=== PATIENT | female | born 1980 | race Caucasian/White ===

== ENCOUNTER 2017-05-18 12:36 | Emergency (ER) | payer MEDICAID ==
[2013-06-01 10:02] VITALS: BMI 36.3
[~2017-05-18 12:36] MED LIST: CELEXA40 MG PO; ESTRACE2 MG PO; KLONOPIN1 MG PO; MOBIC7.5 MG PO; NORCO 10/325 TA1 TA1 PO; NORCO 5/325 TAB1 TA1 PO; PROVENTIL HFA6.7 GM; SOMA350 MG PO
== END 2017-05-18 16:22 | disposition home or self-care (01) ==
LOC: D.ER 12:36
DX: M10.072 Idiopathic gout, left ankle and foot (principal); M77.9 Enthesopathy, unspecified; F17.200 Nicotine dependence, unspecified, uncomplicated

== ENCOUNTER 2017-10-23 08:00 | Emergency (ER) | payer MEDICAID ==
[2013-06-01 10:02] VITALS: BMI 36.3
[2017-12-04] MEDS ORDERED: NORCO 7.5/325 T1 TA1 PO (08:55)
[2017-12-04] MEDS ORDERED: XANAX1 MG PO (08:55)
[2017-12-04] MEDS ORDERED: LEVOTHYROXINE75 MCG PO (08:55)
== END 2017-10-23 10:01 | disposition home or self-care (01) ==
LOC: D.ER 08:00
DX: S80.02XA Contusion of left knee, initial encounter (principal); X58.XXXA Exposure to other specified factors, initial encounter; Y93.9 Activity, unspecified; Y92.89 Other specified places as the place of occurrence of the external cause

== ENCOUNTER → 2017-11-15 14:23 | Outpatient (CLI) | payer MEDICAID ==
[2013-06-01 10:02] VITALS: BMI 36.3
[~2017-11-15 14:23] MED LIST changes: +LEVOTHYROXINE75 MCG PO; +NORCO 7.5/325 T1 TA1 PO; +XANAX1 MG PO
[2017-12-05 08:38] VITALS: BMI 27.1
== END | disposition home or self-care (01) ==
LOC: D.MRI 14:23
DX: M25.562 Pain in left knee (principal)

== ENCOUNTER 2017-12-05 05:22 | Day surgery (SDC) | payer MEDICAID ==
[2017-12-04 09:40] LABS: HEMATOCRIT 40.9 % (36.0-48.0); HEMOGLOBIN 13.8 g/dL (12-16); MCH 31.9 pg (26.0-34.0); MCHC 33.7 g/dL (31.0-37.0); MCV 94.7 fL (80.0-100.0); MEAN PLATELET VOLUME 10.4 fL (7.4-10.4); RBC 4.32 10x6/uL (4.00-5.40); RDW 13.2 % (11.5-14.5); WBC 7.1 10x3/uL (4.8-10.8)
[~2017-12-05] VITALS: Ht 157.5 cm; Wt 67.1 kg
--- NOTE | ~2017-12-05 | OP ---
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 PROCEDURE: Arthroscopic-aided anterior cruciate ligament reconstruction with allograft. SURGEON: Wili Covarrubias MD ANESTHESIA: General. INTRAOPERATIVE COMPLICATIONS: None. SUMMARY OF PATHOLOGIC FINDINGS: The patient had a complete torn ACL of the femoral side, which had wrapped around the PCL rendering some stability. Medial and lateral menisci were in good overall condition. OPERATIVE SUMMARY IN DETAIL: After obtaining the appropriate preoperative orthopedic surgery consent as well as anesthetic consultation, evaluation and clearance, the patient was brought to the operating room and placed on the operating table in supine position. After general laryngeal mask airway was administered, tourniquet was placed about the proximal aspect of left lower extremity. Left lower extremity was then prepped and draped in routine sterile fashion. Leg was exsanguinated, tourniquet was inflated to 350 mmHg. Routine inferolateral portal was established followed by superomedial portal and inferomedial portal. Diagnostic arthroscopy did reveal the above findings. Residual stump was then removed. The tibial tunnel was made using the Arthrex tibial tunnel guide for a size 11. At this point, the spade tipped pin was then placed in an anatomic position in the femur after a notchplasty had been performed. This was then placed through the lateral cortex and out the skin on the lateral thigh. A low profile 11-mm reamer was then used to create the femoral tunnel approximately 35 mm deep. At this point, the graft having already been prepared on the back field for a size 10 was then deployed into the femoral tunnel and the TightRope was deployed in the usual fashion fitting the ACL snugly into the femoral socket as well as the tibial socket. After terminal tensioning, the knee was taken through a range of motion, held taut and at this point, the distal fixation was provided by a bicortical tibial post. This was tied tightly. The knee was taken through range of motion and the patient's preoperative pivot shift was no longer present. Having completed this, the wounds were closed in the usual fashion. The sterile dressings were applied. Tourniquet was deflated. The patient was awakened, taken to recovery room in stable condition. All final needle and sponge counts were correct. TRANSINT:[id number] Voice Confirmation ID: [id number] DOCUMENT ID: [id number] OPERATIVE REPORT [id number] MEÑO DUNN MD, WILI DOMINGUEZ at 1133 CC: [id number] DICTATION DATE: 12/05/172030 LITERACY TUTOR: 12/06/[address] [facility] 12/05/17 [place] [id number] [place] [address]
[2017-12-05 08:38] VITALS: BP 112/74; Ht 157.5 cm; Wt 67.1 kg
== END 2017-12-05 15:15 | disposition home or self-care (01) ==
LOC: D.OPS 05:22 → D.PAN 11:15 → D.OPS 11:25
PROVIDERS: Anesthesiology
DX: S83.512A Sprain of anterior cruciate ligament of left knee, initial encounter (principal); Z01.812 Encounter for preprocedural laboratory examination

== ENCOUNTER → 2017-12-19 11:03 | Outpatient (CLI) | payer MEDICAID ==
[2017-12-05 08:38] VITALS: BMI 27.1
== END | disposition home or self-care (01) ==
LOC: D.US 11:00
DX: R60.0 Localized edema (principal)

== ENCOUNTER → 2018-02-27 14:00 | Outpatient (CLI) | payer MEDICAID ==
[2017-12-05 08:38] VITALS: BMI 27.1
[~2018-02-27 14:00] MED LIST changes: +HYDROCODONE-APA1 TAB PO
== END | disposition home or self-care (01) ==
LOC: D.MRI 14:00
DX: M25.562 Pain in left knee (principal)

== ENCOUNTER 2018-03-31 05:08 | Day surgery (SDC) | payer MEDICAID ==
[2018-03-28 11:41] LABS: HEMATOCRIT 44.5 % (36.0-48.0); MCH 31.9 pg (26.0-34.0); MCHC 33.7 g/dL (31.0-37.0); MCV 94.7 fL (80.0-100.0); MEAN PLATELET VOLUME 10.4 fL (7.4-10.4); RBC 4.7 10x6/uL (4.00-5.40); RDW 13.1 % (11.5-14.5); WBC 9.1 10x3/uL (4.8-10.8)
[~2018-03-31] VITALS: Ht 154.9 cm; Wt 75.3 kg
--- NOTE | ~2018-03-31 | OP ---
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 PROCEDURE: Revision anterior cruciate ligament reconstruction, arthroscopically assisted with allograft. SURGEON: Wili Covarrubias MD ELECTRICAL SUBCONTRACTOR: RILEY Springer ANESTHESIA: IV. INTRAOPERATIVE COMPLICATIONS: None. SUMMARY OF PATHOLOGIC FINDINGS: The patient had a midsubstance tear of the graft associated with her recent fall from a broken chair. The old graft was removed and a new 10-mm allograft was put into place. OPERATIVE SUMMARY IN DETAIL: After obtaining the appropriate preoperative orthopedic surgery consent as well as anesthetic consultation, evaluation and clearance, the patient was brought to the operating room and placed on the operating table in supine position. After general laryngeal mask airway was administered, tourniquet was placed on the proximal aspect of left lower extremity. Left lower extremity was then prepped and draped in routine sterile fashion. The leg was elevated and exsanguinated, tourniquet was inflated to 350 mmHg. Routine inferolateral portal was established followed by superomedial portal and inferomedial portal. Diagnostic arthroscopy did reveal the patient had the above findings. Medial and lateral menisci were in shape. The knee was otherwise in good overall condition. A 5-mm arthroscopic resector was utilized to debride the torn previously placed graft. At this point, the notch was further widened. The anterior cruciate transtibial guide was then used to place the guide pin in the footprint on the tibial aspect of the knee. An 11-mm baton reamer was then utilized to create the tibial tunnel. Having completed this, over the top guide was then used for placement of the spade tip drill and guide pin in the appropriate position. This was then carefully guided through the superior lateral cortex of the femur. A low contour reamer was then used on the femoral side for 11, it was reamed to approximately 30 mm deep. The guide was then passed using a FiberWire guide passer and pulled it into place and the TightRope was then deployed. A small incision was made at the exit site of the pin and tactile dissection was carried down to be sure that the button was on the cortical aspect. Having completed this, final knee cycles were then followed by using the old post. The old post was backed out and the FiberWires were tied around it and it was then reseated. Preoperative pivot shift was corrected. Having completed this, the wounds were closed with a combination of subcutaneous and 4-0 Prolene. Sterile dressings were applied. Tourniquet was deflated. Knee immobilizer was placed. The patient was awakened and taken to recovery room in stable condition. All final needle and sponge counts were OPERATIVE REPORT [id number] MEÑO DUNN correct. TRANSINT:[id number] Voice Confirmation ID: [id number] DOCUMENT ID: [id number] SATISH ROMERO, WILI DOMINGUEZ at 1332 CC: [id number] DICTATION DATE: 03/31/18 0854 CASHIER ASSISTANT: 03/31/18 1201 [facility] 03/31/18 [place] [id number] [place] [address]
[2018-03-31 05:46] VITALS: BP 100/49; Ht 154.9 cm; Wt 75.3 kg
[2018-03-31] MEDS ORDERED: HYDROCODONE-APA1 TAB PO (08:56)
== END 2018-03-31 11:20 | disposition home or self-care (01) ==
LOC: D.OPS 05:08 → D.PAN 12:15 → D.OPS 15:15
PROVIDERS: Anesthesiology
DX: S83.512A Sprain of anterior cruciate ligament of left knee, initial encounter (principal); X58.XXXA Exposure to other specified factors, initial encounter; Z01.812 Encounter for preprocedural laboratory examination

== ENCOUNTER 2018-04-19 20:42 | Emergency (ER) | payer MEDICAID ==
[~2018-04-19] VITALS: Ht 154.9 cm; Wt 75.5 kg
[2018-04-19 20:48] VITALS: Ht 154.9 cm; Wt 75.5 kg
[2018-04-19] MEDS ORDERED: ZYLOPRIM100 MG PO (20:50)
[2018-04-19 21:25] LABS: BASOPHILS 0.1 % (0-2); EOSINOPHILS 0.7 % (0-7); HEMATOCRIT 38.1 % (36.0-48.0); IMMATURE GRANULOCYTES 0.1 % (0-5); LYMPHOCYTES 26.4 % (15-50); MCH 31.7 pg (26.0-34.0); MCHC 34.1 g/dL (31.0-37.0); MCV 92.9 fL (80.0-100.0); MEAN PLATELET VOLUME 10.4 fL (7.4-10.4); NEUTROPHILS 67.7 % (40-80); PLATELET COUNT 302 10x3/uL (130-400); RDW 13.4 % (11.5-14.5); WBC 8.1 10x3/uL (4.8-10.8)
[2018-04-19 21:27] LABS: APPEARANCE CLEAR (CLEAR); BILIRUBIN NEGATIVE (NEGATIVE); COLOR YELLOW (YELLOW); GLUCOSE NEGATIVE (NEGATIVE); KETONE NEGATIVE (NEGATIVE); NITRITE NEGATIVE (NEGATIVE); PROTEIN NEGATIVE (NEGATIVE); SPECIFIC GRAVITY 1.025 (1.005-1.020); UROBILINOGEN NORMAL (NORMAL)
[2018-04-19 21:29] LABS: RED CELLS - URINE 0-5 /hpf (0-5)
[2018-04-19 21:30] LABS: BACTERIA MODERATE /hpf (NONE SEEN); CALCIUM OXALATE CRYSTALS 0-5 /hpf (NONE SEEN); EPITHELIAL CELLS 0-5 /hpf (0-5); MUCUS <1+ /lpf (NONE SEEN)
[2018-04-19 22:40] LABS: CALCIUM 9.2 mg/dL (8.5-10.1); CARBON DIOXIDE 26.6 mmol/L (21.0-32.0); POTASSIUM - SERUM 3.6 mmol/L (3.5-5.1)
[2018-04-19] MEDS ORDERED: PROAIR HFA8.5 GM INH (23:13)
[2018-04-19] MEDS ORDERED: MACROBID100 MG PO (23:13)
[2018-04-19] MEDS ORDERED: PHENERGAN25 M1 PO (23:14)
[2018-04-19 23:47] VITALS: BP 122/80
== END 2018-04-19 23:48 | disposition home or self-care (01) ==
LOC: D.ER 20:42
PROVIDERS: Family Medicine
DX: N39.0 Urinary tract infection, site not specified (principal); J45.909 Unspecified asthma, uncomplicated; R19.7 Diarrhea, unspecified; F17.200 Nicotine dependence, unspecified, uncomplicated

== ENCOUNTER 2018-07-11 10:14 | Emergency (ER) | payer MEDICAID ==
[~2018-07-11] VITALS: Ht 154.9 cm; Wt 74.5 kg
[~2018-07-11 10:14] MED LIST changes: +MACROBID100 MG PO; +PHENERGAN25 M1 PO; +PROAIR HFA8.5 GM INH; +ZYLOPRIM100 MG PO
[2018-07-11 10:17] VITALS: Ht 154.9 cm; Wt 74.5 kg
[2018-07-11 10:54] LABS: BASOPHILS 0.1 % (0-2); EOSINOPHILS 1.3 % (0-7); HEMATOCRIT 41.5 % (36.0-48.0); HEMOGLOBIN 13.9 g/dL (12-16); IMMATURE GRANULOCYTES 0.3 % (0-5); LYMPHOCYTES 26.3 % (15-50); MCH 31.4 pg (26.0-34.0); MCHC 33.5 g/dL (31.0-37.0); MCV 93.9 fL (80.0-100.0); MEAN PLATELET VOLUME 10.7 fL (7.4-10.4); MONOCYTES 5.4 % (2-11); NEUTROPHILS 66.6 % (40-80); RBC 4.42 10x6/uL (4.00-5.40); RDW 13.9 % (11.5-14.5); WBC 10.6 10x3/uL (4.8-10.8)
[2018-07-11 10:55] LABS: PLATELET COUNT 238 10x3/uL (130-400)
[2018-07-11 11:05] LABS: APPEARANCE HAZY (CLEAR); BACTERIA MANY /hpf (NONE SEEN); BILIRUBIN NEGATIVE (NEGATIVE); COLOR YELLOW (YELLOW); EPITHELIAL CELLS 0-5 /hpf (0-5); GLUCOSE NEGATIVE (NEGATIVE); KETONE NEGATIVE (NEGATIVE); NITRITE NEGATIVE (NEGATIVE); PROTEIN TRACE mg/dL (NEGATIVE); UROBILINOGEN NORMAL (NORMAL); WHITE CELLS - URINE 25-50 /hpf (0-5)
[2018-07-11 11:09] LABS: ALBUMIN 3.5 g/dL (3.4-5.0); ANION GAP 13.9 mmol/L (8-16); BILIRUBIN - TOTAL 0.35 mg/dL (0.2-1.3); CALCIUM 8.3 mg/dL (8.5-10.1); CARBON DIOXIDE 26.9 mmol/L (21.0-32.0); CREATININE - SERUM 0.9 mg/dL (0.6-1.3); POTASSIUM - SERUM 3.8 mmol/L (3.5-5.1); PROTEIN - SERUM 7.8 g/dL (6.4-8.2)
[2018-07-11] MEDS ORDERED: LEVAQUIN750 MG PO (12:04)
[2018-07-11] MEDS ORDERED: TORADOL10 MG PO (12:04)
[2018-07-11 14:05] VITALS: BP 136/78
== END 2018-07-11 14:06 | disposition home or self-care (01) ==
LOC: D.ER 10:14
PROVIDERS: Family Medicine
DX: R10.9 Unspecified abdominal pain (principal); N39.0 Urinary tract infection, site not specified; F17.200 Nicotine dependence, unspecified, uncomplicated

== ENCOUNTER → 2018-08-22 08:10 | Outpatient (CLI) | payer MEDICAID ==
[2018-07-11 10:17] VITALS: BMI 31.0
[~2018-08-22 08:10] MED LIST changes: +LEVAQUIN750 MG PO; +SILVADENE20 GM TP; +TORADOL10 MG PO
== END | disposition home or self-care (01) ==
LOC: D.MRI 08-08 07:00
DX: M25.372 Other instability, left ankle (principal)

== ENCOUNTER 2018-08-24 13:28 | Emergency (ER) | payer MEDICAID ==
[~2018-08-24] VITALS: Ht 154.9 cm; Wt 75.9 kg
[~2018-08-24 13:28] MED LIST changes: -SILVADENE20 GM TP
[2018-08-24 13:36] VITALS: Ht 154.9 cm; Wt 75.9 kg
[2018-08-24] MEDS ORDERED: SILVADENE20 GM TP (14:37)
[2018-08-24] MEDS ORDERED: NORCO 7.5/325 T1 TA1 PO (14:37)
[2018-08-24 15:17] VITALS: BP 113/74
== END 2018-08-24 15:23 | disposition home or self-care (01) ==
LOC: D.ER 13:28
DX: T23.021A Burn of unspecified degree of single right finger (nail) except thumb, initial encounter (principal); W86.8XXA Exposure to other electric current, initial encounter; Y93.89 Activity, other specified; Y92.019 Unspecified place in single-family (private) house as the place of occurrence of the external cause; S69.91XA Unspecified injury of right wrist, hand and finger(s), initial encounter; X58.XXXA Exposure to other specified factors, initial encounter; F17.200 Nicotine dependence, unspecified, uncomplicated

== ENCOUNTER 2019-03-16 05:30 | Day surgery (SDC) | payer MEDICAID ==
[2019-03-13 10:52] LABS: HEMOGLOBIN 13.6 g/dL (12-16); MCV 94.1 fL (80.0-100.0); MEAN PLATELET VOLUME 10.5 fL (7.4-10.4); RBC 4.25 10x6/uL (4.00-5.40); RDW 13.9 % (11.5-14.5); WBC 8.9 10x3/uL (4.8-10.8)
[~2019-03-16] VITALS: Ht 154.9 cm; Wt 77.1 kg
[~2019-03-16 05:30] MED LIST changes: +ALBUTEROL2.5 MG/3 M INH; +SILVADENE20 GM TP
[2019-03-16 06:52] VITALS: BP 99/61; Ht 154.9 cm; Wt 77.1 kg
[2019-03-16] MEDS ORDERED: HYDROCODON-ACE1 EA10 PO (08:40)
--- NOTE | 2019-03-16 10:37 | NUR ---
IV REMOVED AND PRESSURE HELD. ATE A BREAKFAST TRAY.
--- NOTE | 2019-03-16 12:14 | OP ---
PATIENT NAME: MEÑO DUNN MEDICAL RECORD: [id number] :80 LOCATION:D.OPS ADMISSION DATE: SURGEON: WILI COVARRUBIAS MD DATE OF OPERATION: 03/16/2019 PREOPERATIVE DIAGNOSIS: Carpal tunnel syndrome of the left wrist. POSTOPERATIVE DIAGNOSIS: Carpal tunnel syndrome of the left wrist. PROCEDURE: Left carpal tunnel release. SURGEON: Wili Covarrubias MD ADMINISTRATIVE RESIDENT: Rishi Sierra ANESTHESIA: General. INTRAOPERATIVE COMPLICATIONS: None. SUMMARY OF PATHOLOGIC FINDINGS: The patient had very tight transverse carpal ligament consistent with preoperative diagnosis as well as EMGs and NCVs. OPERATIVE SUMMARY IN DETAIL: After obtaining the appropriate preoperative orthopedic surgery consent as well as anesthetic consultation, evaluation and clearance, the patient was brought to the operating room and placed on the operating table in supine position. After general laryngeal mask airway was administered, tourniquet was placed on the proximal aspect of the left upper extremity. Left upper extremity was then prepped and draped in usual sterile fashion. The arm was elevated and exsanguinated, tourniquet was inflated to 250 mmHg. An incision was made in line with fourth metacarpal ray taken down to the level of the distal aspect of the transverse carpal ligament, at which time a freer was placed over the median nerve and very gentle incision of the entire transverse carpal ligament was done to the proximal wrist crease under direct visualization. Having completed this, the wound was irrigated and closed in a vertical mattress fashion using 4-0 Prolene done by Rishi Sierra. The area was locally infiltrated with 0.25% Marcaine. Sterile dressings were applied. Tourniquet was deflated. The patient was awakened, taken to recovery room in stable condition. All final needle and sponge counts were correct. TRANSINT:[id number] Voice Confirmation ID: [id number] DOCUMENT ID: [id number] WILI COVARRUBIAS MD at 1214 CC: [id number] DICTATION DATE: 03/16/[address] LIGHT MECHANIC: 03/16/19 1107 [facility] 03/16/19 [place] [address]
== END 2019-03-16 10:39 | disposition home or self-care (01) ==
LOC: D.OPS 05:30 → D.PAN 07:30 → D.OPS 10:39 → D.PAN 16:15 → D.OPS 16:15
PROVIDERS: Anesthesiology; ATTEND Orthopaedic Surgery
DX: G56.02 Carpal tunnel syndrome, left upper limb (principal); Z01.812 Encounter for preprocedural laboratory examination

== ENCOUNTER 2019-06-18 07:00 | Day surgery (SDC) | payer MEDICAID ==
[2019-06-17 14:33] LABS: HEMATOCRIT 40.2 % (36.0-48.0); HEMOGLOBIN 13.8 g/dL (12-16); MCH 31.7 pg (26.0-34.0); MCHC 34.3 g/dL (31.0-37.0); MCV 92.4 fL (80.0-100.0); MEAN PLATELET VOLUME 10.4 fL (7.4-10.4); RBC 4.35 10x6/uL (4.00-5.40); RDW 14.1 % (11.5-14.5); WBC 10.5 10x3/uL (4.8-10.8)
[~2019-06-18] VITALS: Ht 154.9 cm; Wt 72.6 kg
[~2019-06-18 07:00] MED LIST changes: +HYDROCODON-ACE1 EA10 PO; +LEVO-T100 MCG PO; -LEVOTHYROXINE75 MCG PO
[2019-06-18 07:20] VITALS: BP 97/70; Ht 154.9 cm; Wt 72.6 kg
[2019-06-18] MEDS ORDERED: HYDROCODON-ACE1 EA10 PO (09:19)
--- NOTE | 2019-06-18 11:00 | OP ---
PATIENT NAME: MEÑO DUNN MEDICAL RECORD: [id number] :80 LOCATION:D.OPS ADMISSION DATE: SURGEON: WILI COVARRUBIAS MD DATE OF OPERATION: 06/18/2019 PREOPERATIVE DIAGNOSIS: Carpal tunnel syndrome of the left wrist. POSTOPERATIVE DIAGNOSIS: Carpal tunnel syndrome of the left wrist. PROCEDURE: Left carpal tunnel release. SURGEON: Wili Covarrubias MD ANESTHESIA: General. INTRAOPERATIVE COMPLICATIONS: None. SUMMARY OF PATHOLOGIC FINDINGS: The patient was indeed found a very tight transverse carpal ligament consistent with preoperative diagnosis, EMGs and NCVs. OPERATIVE SUMMARY IN DETAIL: After obtaining the appropriate preoperative orthopedic surgery consent as well as anesthetic consultation, evaluation and clearance, the patient was brought to the operating room and placed on the operating table in a supine position. After general laryngeal mask airway was administered, tourniquet was placed about the proximal aspect of the left upper extremity. Left upper extremity was then prepped and draped in routine sterile fashion. The arm was exsanguinated. Tourniquet inflated to 250 mmHg. An incision was made in line with the fourth metacarpal ray taken down to the level of the transverse carpal ligament was identified, it was incised slightly and the median nerve was identified and covered with the Dante elevator. At this point, the Ivonne protected. Light knife was utilized to incise the entire transverse carpal ligament to the proximal wrist crease under direct visualization. Having completed this, wound was irrigated and closed with 4-0 Prolene. Air was locally infiltrated with 0.25% Marcaine plain. Sterile dressings were applied. Tourniquet was deflated. The patient was awakened and taken to recovery in stable condition. All final needle and sponge counts were correct. TRANSINT:[id number] Voice Confirmation ID: [id number] DOCUMENT ID: [id number] WILI COVARRUBIAS MD at 1100 CC: [id number] DICTATION DATE: 06/18/19909 OCC THERAPY ASST: 06/18/19922 [facility] [address] [place] [address]
--- NOTE | 2019-06-18 14:32 | NUR ---
1108 RX'D WITH [facility]CO FOR C/O OF INCREASING PAIN
== END 2019-06-18 11:35 | disposition home or self-care (01) ==
LOC: D.OPS 07:00 → D.PAN 09:30 → D.OPS 09:30
PROVIDERS: Anesthesiology; ATTEND Orthopaedic Surgery
DX: G56.02 Carpal tunnel syndrome, left upper limb (principal); Z01.812 Encounter for preprocedural laboratory examination

== ENCOUNTER 2019-09-01 15:24 | Emergency (ER) | payer MEDICAID ==
[~2019-09-01] VITALS: Ht 154.9 cm; Wt 72.7 kg
[2019-09-01 15:25] VITALS: Ht 154.9 cm; Wt 72.7 kg
[2019-09-01] MEDS ORDERED: HYDROCODON-ACE1 EA10 PO (16:23)
[2019-09-01 17:30] VITALS: BP 125/70
== END 2019-09-01 17:46 | disposition home or self-care (01) ==
LOC: D.ER 15:24
DX: S82.62XA Displaced fracture of lateral malleolus of left fibula, initial encounter for closed fracture (principal); W19.XXXA Unspecified fall, initial encounter

== ENCOUNTER → 2019-09-30 12:40 | Outpatient (CLI) | payer MEDICAID ==
[2019-09-01 15:25] VITALS: BMI 30.3
== END | disposition home or self-care (01) ==
LOC: D.MRI 12:40
PROVIDERS: ATTEND Clinical Nurse Specialist Family Health
DX: M76.62 Achilles tendinitis, left leg (principal)

== ENCOUNTER → 2019-10-27 13:54 | Outpatient (CLI) | payer MEDICAID ==
[2019-09-01 15:25] VITALS: BMI 30.3
== END | disposition home or self-care (01) ==
LOC: D.MRI 13:54
PROVIDERS: ATTEND Clinical Nurse Specialist Family Health
DX: M25.532 Pain in left wrist (principal)

== ENCOUNTER 2019-12-28 23:49 | Emergency (ER) | payer MEDICAID ==
[~2019-12-28] VITALS: Ht 154.9 cm; Wt 68.2 kg
[~2019-12-28 23:49] MED LIST changes: +GABAPENTIN300 MG PO; +NEOMYC-POLYM-GR10 ML RIGHT EYE
[2019-12-29 00:19] VITALS: BP 115/67; Ht 154.9 cm; Wt 68.2 kg
[2019-12-29] MEDS ORDERED: NEURONTIN 300300 MG PO (00:20)
[2019-12-29] MEDS ORDERED: ACETAMINOPHEN500 M1 PO (01:37)
[2019-12-29] MEDS ORDERED: CYCLOBENZAPRINE10 MG PO (01:37)
[2019-12-29] MEDS ORDERED: IBUPROFEN800 MG PO (01:37)
== END 2019-12-29 02:30 | disposition home or self-care (01) ==
LOC: D.ER 23:49
DX: G89.29 Other chronic pain (principal); M25.572 Pain in left ankle and joints of left foot; J44.9 Chronic obstructive pulmonary disease, unspecified; Z72.0 Tobacco use